=== PATIENT | male | born 1985 | race Caucasian/White ===

== ENCOUNTER 2020-10-18 22:13 | Emergency (ER) | payer BC ==
[2020-10-18] MEDS: Sodium Chloride 0.9% 1,000 ML IV ONE (22:59)
[2020-10-18] MEDS: Diltiazem 25 MG/5 ML SDV IVPUSH ONE (23:04)
--- NOTE | 2020-10-19 00:14 | ER ---
HISTORY OF PRESENT ILLNESS: A 35-year-old male here with complaints of not feeling well. His heartbeat has been fast. He has had a little bit of shortness of breath intermittently and he has noticed a blotchy rash on his body. The patient states he was outside most of the day doing some mowing activities and he did drink quite a bit of beer. He has not drank any water today. The patient denies any previous history of a similar nature. He denies taking any prescription medications and is only allergic to penicillin. He states that the shortness of breath is mild and it just seems to come and go when he feels his pulse is fast. He is not having any problems with chest pain, nausea, vomiting, or diarrhea. He is not coughing. OBJECTIVE: GENERAL APPEARANCE: The patient is awake, he is flushed, no respiratory distress at this time. VITAL SIGNS: Reviewed. Pulse is initially 115. When on the monitor, it seems to be ranging from the one teen range up to as high as 140s, respirations 20, O2 sats are 98% on room air. He is afebrile. SKIN: Examining the patient's skin reveals a blotchy erythematous macular rash present on his arms, mostly the outer aspect, both on the lower and upper arms and on his abdomen diffusely. His face is red and sona looking. There are no blisters, pustules, or scabs. The rash is also present on his thighs, but seems to resolve at roughly the level of the knees. The rash is warm to touch. LUNGS: Clear. CARDIAC: Heart sounds distinct with a tachycardic rate. I do not hear any murmurs. S1, S2 are present. INITIAL TREATMENT: An IV was started. The patient was given 1 L of normal saline in a bolus form. He was also given Cardizem 20 mg IV. At approximately the long term point of getting the liter of IV fluids, his rash started to improve. Chest x-ray was obtained and is unremarkable. LABORATORY DATA: CBC, CMP, and troponin, they are basically normal. DIAGNOSES: 1. Dehydration with exposure symptoms. 2. Tachycardia, which I believe is connected to dehydration as well. TREATMENT PLAN: The patient will be discharged home after receiving the full liter of IV fluids. He states he is definitely feeling better. He is to take it easy tomorrow. I gave him a slip to be off work 1 day. He is to push fluids, drinking water, and he can have some Gatorade or other fluids as well. Activity should be slowly increased as tolerated, and followup is p.r.n. MARIA DEL CARMEN/MARY /[id number]
--- NOTE | 2020-10-19 07:24 | CR ---
Date of Service: 10/18/20 Clinical Data: SOB. Tachycardia. AP CHEST: No priors. The heart size is normal. The lungs are clear. No pneumothorax. No pleural effusions. No evidence of acute intrathoracic disease. [id number] MTDD
== END 2020-10-18 23:55 | disposition home or self-care (01) ==
LOC: LB.ED 22:13
DX: R00.0 Tachycardia, unspecified (principal); E86.0 Dehydration
CPT/HCPCS: 36415; 71045; 80053; 84484; 85025; 93005; 96374; 99284; 99284-25; J3490; J7030